=== PATIENT | female | born 1975 | race Caucasian/White ===

== ENCOUNTER → 2020-08-22 | Outpatient (CLI) | payer OTHER ==
[~2020-08-22] MED LIST: ADVIL200 M1 PO; FLEXERIL PO; NEURONTIN 300M300 M2 PO
== END ==
LOC: M.PC 10:00
PROVIDERS: ATTEND Physical Medicine & Rehabilitation
DX: M51.37 Other intervertebral disc degeneration, lumbosacral region (principal); M48.07 Spinal stenosis, lumbosacral region; M79.604 Pain in right leg

== ENCOUNTER → 2020-08-29 | Outpatient (CLI) | payer OTHER | END | disposition home or self-care (01) | LOC: M.PC 07:51 | PROVIDERS: ATTEND Physical Medicine & Rehabilitation | DX: M51.16 Intervertebral disc disorders with radiculopathy, lumbar region (principal); M48.061 Spinal stenosis, lumbar region without neurogenic claudication; M47.26 Other spondylosis with radiculopathy, lumbar region; G89.29 Other chronic pain; Z98.890 Other specified postprocedural states; Z79.899 Other long term (current) drug therapy ==

== ENCOUNTER → 2020-09-12 | Outpatient (CLI) | payer OTHER | LOC: M.PC 07:44 | PROVIDERS: ATTEND Physical Medicine & Rehabilitation | DX: M48.07 Spinal stenosis, lumbosacral region (principal); M47.817 Spondylosis without myelopathy or radiculopathy, lumbosacral region; M79.604 Pain in right leg ==